=== PATIENT | female | born 1970 | race Caucasian/White ===

== ENCOUNTER 2018-02-24 05:47 | Emergency (ER) | payer SELFPAY ==
[2018-02-24 06:08] VITALS: BMI 20.1
--- NOTE | 2018-02-24 06:34 | PDOC ---
History of Present Illness - General Chief Complaint: Pain, Acute Stated Complaint: ABD PAIN Time Seen by Provider: 02/24/18 06:19 - History of Present Illness Initial Comments: 02/24/18 06:24 CHIEF COMPLAINT: lower abdominal pain HISTORY OF PRESENT ILLNESS: 47 yo F A2 with hx of two miscarriages ( including one D&C 26 years ago and another medically assisted with D&C 6 years ago), presents to ED with lower abdominal pain and vaginal bleeding since 2 am today. Patient reports she woke up in pain and with the sensation that she needed to make a bowel movement, but when she used the bathroom she could only pass a little urine and had a lot of pain with hematuria. Denies burning sensation with urination and states "it is pain, not burning." Patient reports she had similar sensations when she had her previous miscarriages. Patient reports LMP was last week. Last bowel movement was 4 hours ago. Patient reports having negative STD test approximately 2 months ago. Patient denies fever, vomiting, or diarrhea, but reports chills all night. PAST MEDICAL HISTORY: "breast cysts", 2 c-sections, 2 D&Cs FAMILY HISTORY: Denies SOCIAL HISTORY: Denies tobacco, alcohol, illicit drug use. SURGICAL HISTORY: Denies ALLERGIES: No known drug allergies REVIEW OF SYSTEMS General/Constitutional: Chills tonight. Denies fever. Denies weakness, weight change. HEENT: Denies change in vision. Denies ear pain or discharge. Denies sore throat. Cardiovascular: Denies chest pain or shortness of breath. Respiratory: Denies cough, wheezing, or hemoptysis. Gastrointestinal: Denies nausea, vomiting, diarrhea or constipation. Denies rectal bleeding. Genitourinary: Lower abdominal pain while urinating/defecating, vaginal bleeding Musculoskeletal: Denies joint or muscle swelling or pain. Denies neck or back pain. Skin and breasts: Denies rash or easy bruising. PHYSICAL EXAM General Appearance: Well-appearing, appropriately dressed. No apparent distress. HEENT: EOMI, PERRLA, normal ENT inspection, normal voice, TMs normal, pharynx normal. No conjunctival pallor. No photophobia, scleral icterus. Respiratory/Chest: Lungs CTAB. Cardiovascular: RRR. S1, S2. Pelvic: External genitalia normal without lesions. Vaginal vault is with foul smelling yellow discharge, no bleeding appreciated. Cervix is long and closed. No cervical motion tenderness. Uterus is nontender and normal in size. Mild R adnexal tenderness. Musculoskeletal/Extremities: Normal inspection. FROM of all extremities, normal capillary refill. Pelvis Stable. No CVA tenderness. No tenderness to extremities, pedal edema, swelling, erythema or deformity. Integumentary: Appropriate color, dry, warm. No cyanosis, erythema, jaundice or rash Neurologic: locator specialist II-XII intact. Fully oriented, alert. Appropriate mood/affect. Motor strength 5/5. No appreciable EOM palsy, facial droop or sensory deficit. Past History - Past Medical History Allergies/Adverse Reactions: Allergies Allergy/AdvReac Type Severity Reaction Status Date / Time No Known Allergies Allergy Verified 02/24/18 06:06 Home Medications: Ambulatory Orders Nitrofurantoin Monohyd/M-Cryst [Macrobid -] 100 mg PO BID #14 capsule 02/24/18 Nitrofurantoin Monohyd/M-Cryst [Macrobid -] 100 mg PO BID #14 capsule 02/24/18 - Suicide/Smoking/Psychosocial Hx Smoking Status: No Smoking History: Never smoked Have you smoked in the past 12 months: No Number of Cigarettes Smoked Daily: 0 Information on smoking cessation initiated: No Hx Alcohol Use: No Drug/Substance Use Hx: No *Physical Exam - Vital Signs Last Vital Signs Temp Pulse Resp BP Pulse Ox 97.8 F 95 H 20 112/72 100 02/24/18 06:06 02/24/18 06:06 02/24/18 06:06 02/24/18 06:06 02/24/18 06:06 ED Treatment Course - LABORATORY CBC & Chemistry Diagram: 02/24/18 06:05 02/24/18 06:05 - RADIOLOGY Radiology Studies Ordered: Category Date Time Status TRANSVAGINAL US PREG [US] Stat Ultrasound 02/24/18 06:19 Ordered Medical Decision Making - Medical Decision Making 02/24/18 06:42 47 yo F A2 with hx of two spontaneous abortions (one D&C 26 years ago and another medically assisted with D&C6 years ago), presents to ED with lower abdominal pain and vaginal bleeding since 2 am today. DDx includes: PID, ruptured ovarian cyst, spontaneous , UTI -labs, urine, ultrasound Given discharge and adnexal tenderness on pelvic exam, will treat prophylactically for PID. -azithromycin, rocephin 02/24/18 06:50 Patient reports she just went to the restroom and passed two large blood clots. Case discussed in detail with oncoming emergency provider including history, physical exam and ancillary studies. In brief, this patient is being seen in the ED for a chief complaint of: I have completed the initial assessment interview note and have ordered the following labs: CBC, CMP, T&S, beta, urines, ct/gc, ultrasound I have reviewed the following results: nothing Pending results: everything Please call the PCP: patient does not have one Plan for disposition as follows: pending Oncoming [facility] has assumed care for the patient and will complete the evaluation and treatment. *DC/Admit/Observation/Transfer Diagnosis at time of Disposition: Uterine fibroid Qualifiers: Uterine leiomyoma location: unspecified location Qualified Code(s): D25.9 - Leiomyoma of uterus, unspecified UTI (urinary tract infection) Qualifiers: Urinary tract infection type: acute cystitis Hematuria presence: with hematuria Qualified Code(s): N30.01 - Acute cystitis with hematuria - Discharge Dispostion Disposition: HOME Condition at time of disposition: Good - Prescriptions Prescriptions: Nitrofurantoin Monohyd/M-Cryst [Macrobid -] 100 mg PO BID #14 capsule Nitrofurantoin Monohyd/M-Cryst [Macrobid -] 100 mg PO BID #14 capsule - Referrals Referrals: Cara Rinaldi MD [Staff Physician] - 14 days - Patient Instructions Printed Discharge Instructions: DI for Uterine Fibroids, DI for Urinary Tract Infection (UTI) Additional Instructions: Discharge instructions: -You have a urinary tract infection; a prescription for antibiotics has been sent to your pharmacy; please rock picker today and begin taking. -Please drink at least 64oz of water daily -You also have a uterine fibroid, which may be causing your vaginal bleeding. -You can take over the counter Tylenol or Motrin for your pain if needed -Follow up with Dr. Rinaldi within 2 weeks for further evaluation of your fibroid -Return to the ER with any worsening or concerning symptoms. Instrucciones de descarga: -Tiene vibha infeccin del tracto urinario. vibha receta para antibiticos velazquez sido enviada a ott farmacia; por favor retrese hoy y comience a timmy. -Por favor susie al menos 64 onzas de agua al da -Tambin tiene un fibroma uterino, que puede estar causando ott sangrado vaginal. -Puede timmy el control Tylenol o Motrin para ott dolor si es necesario -Siga con el Dr. Rinaldi dentro de 2 semanas para vibha evaluacin adicional de ott fibroma -Volver a la marquita de emergencias con cualquier empeoramiento o sntomas. Print Language: YAKUT - Post Discharge Activity
[2018-02-24] MEDS ORDERED: AZITHROMYCIN 500 MG TABLET PO ONE (06:38)
--- NOTE | 2018-02-24 06:38 | PDOC ---
*Physical Exam - Vital Signs Last Vital Signs Temp Pulse Resp BP Pulse Ox 97.8 F 95 H 20 112/72 100 02/24/18 06:06 02/24/18 06:06 02/24/18 06:06 02/24/18 06:06 02/24/18 06:06 ED Treatment Course - LABORATORY CBC & Chemistry Diagram: 02/24/18 06:05 02/24/18 06:05 Medical Decision Making - Medical Decision Making 02/24/18 06:37 agree with care from AHSAN Segovia *DC/Admit/Observation/Transfer Diagnosis at time of Disposition: Uterine fibroid, UTI (urinary tract infection) - Discharge Dispostion Disposition: HOME Condition at time of disposition: Good - Prescriptions Prescriptions: Nitrofurantoin Monohyd/M-Cryst [Macrobid -] 100 mg PO BID #14 capsule Nitrofurantoin Monohyd/M-Cryst [Macrobid -] 100 mg PO BID #14 capsule - Referrals Referrals: Cara Rinaldi MD [Staff Physician] - 14 days - Patient Instructions Printed Discharge Instructions: DI for Uterine Fibroids, DI for Urinary Tract Infection (UTI) Additional Instructions: Discharge instructions: -You have a urinary tract infection; a prescription for antibiotics has been sent to your pharmacy; please garbage pick up man today and begin taking. -Please drink at least 64oz of water daily -You also have a uterine fibroid, which may be causing your vaginal bleeding. -You can take over the counter Tylenol or Motrin for your pain if needed -Follow up with Dr. Rinaldi within 2 weeks for further evaluation of your fibroid -Return to the ER with any worsening or concerning symptoms. Instrucciones de descarga: -Tiene vibha infeccin del tracto urinario. vibha receta para antibiticos velazquez sido enviada a ott farmacia; por favor retrese hoy y comience a timmy. -Por favor susie al menos 64 onzas de agua al da -Tambin tiene un fibroma uterino, que puede estar causando ott sangrado vaginal. -Puede timmy el control Tylenol o Motrin para ott dolor si es necesario -Siga con el Dr. Rinaldi dentro de 2 semanas para vibha evaluacin adicional de ott fibroma -Volver a la marquita de emergencias con cualquier empeoramiento o sntomas. Print Language: ENGLISH - Post Discharge Activity
[2018-02-24] MEDS: ONDANSETRON *ODT* 4 MG TABLET SL ONE ×2 (06:42→07:43)
[2018-02-24 06:43] LABS: BASO % 0.3 % (0-2.0); EOS % 0.8 % (0-4.5); HEMATOCRIT 37.5 % (32.4-45.2); HEMOGLOBIN 13.1 GM/dL (10.7-15.3); LYMPH % 13.6 % (8-40); MCH 30.9 pg (25.7-33.7); MCHC 34.9 g/dl (32.0-36.0); MEAN CELL VOLUME 88.5 fl (80-96); MONO % 5.4 % (3.8-10.2); NEUT % 79.9 % (42.8-82.8); PLATELET COUNT 222 K/MM3 (134-434); RBC 4.24 M/mm3 (3.60-5.2); RDW 12.8 % (11.6-15.6); WHITE BLOOD COUNT 14.3 K/mm3 (4.0-10.0)
[2018-02-24] MEDS ORDERED: ONDANSETRON *ODT* 4 MG TABLET ONE ×2 (06:43→07:41)
[2018-02-24 06:45] LABS: URINE APPEARANCE CLOUDY; URINE BILIRUBIN NEGATIVE (<2.0 mg/dL); URINE COLOR YELLOW; URINE GLUCOSE (UA) NEGATIVE (NEGATIVE); URINE KETONE NEGATIVE (NEGATIVE); URINE NITRITE NEGATIVE (NEGATIVE); URINE UROBILINOGEN NEGATIVE mg/dL (0.2-1.0)
[2018-02-24 07:05] LABS: INR 0.98 (0.82-1.09); PROTHROMBIN TIME (PATIENT) 11.1 SEC (9.7-13.0)
[2018-02-24 07:26] LABS: ALBUMIN 4.1 g/dl (3.4-5.0); ALK PHOS 81 U/L (45-117); ANION GAP 5 (8-16); BILIRUBIN,TOTAL 1.1 mg/dL (0.2-1.0); BLOOD UREA NITROGEN 19 mg/dL (7-18); CHLORIDE 100 mmol/L (98-107); CO2 31 mmol/L (21-32); CREATININE 0.8 mg/dL (0.55-1.02); GLUCOSE,RANDOM 106 mg/dL (74-106); POTASSIUM 3.7 mmol/L (3.5-5.1); SGOT/AST 26 U/L (15-37); SGPT/ALT 27 U/L (12-78); SODIUM 136 mmol/L (136-145); TOT PROT 7.5 g/dl (6.4-8.2)
[2018-02-24] MEDS ORDERED: AZITHROMYCIN 250 MG TABLET ONE (07:38)
[2018-02-24] MEDS ORDERED: cefTRIAXone SODIUM 1 GM VIAL ONE (07:39)
[2018-02-24] MEDS ORDERED: SODIUM CHLORIDE 1,000 ML IV STA (08:09)
[2018-02-24 08:16] LABS: URINE LEUK ESTERASE 2+ (NEGATIVE); URINE PROTEIN 3+ (NEGATIVE)
[2018-02-24 08:18] LABS: EPI CELLS RARE /HPF (FEW)
--- NOTE | 2018-02-24 09:09 | PDOC ---
ED Treatment Course - LABORATORY CBC & Chemistry Diagram: 02/24/18 06:05 02/24/18 06:05 - ADDITIONAL ORDERS Additional order review: Laboratory Results 02/24/18 02/24/18 02/24/18 06:05 06:05 06:05 PT with INR 11.10 INR 0.98 Sodium Potassium Chloride Carbon Dioxide Anion Gap BUN Creatinine Creat Clearance w eGFR Random Glucose Calcium Total Bilirubin AST ALT Alkaline Phosphatase Total Protein Albumin Beta HCG, Quant < 1.0 Urine Color Yellow Urine Appearance Cloudy Urine pH 9.0 H Ur Specific [place] 1.017 Urine Protein 3+ H Urine Glucose (UA) Negative Urine Ketones Negative Urine Blood 3+ H Urine Nitrite Negative Urine Bilirubin Negative Urine Urobilinogen Negative Ur Leukocyte Esterase 2+ H Urine WBC (Auto) 258 Urine RBC (Auto) 2454 Ur Epithelial Cells Rare 02/24/18 06:05 PT with INR INR Sodium 136 Potassium 3.7 Chloride 100 Carbon Dioxide 31 Anion Gap 5 L BUN 19 H Creatinine 0.8 Creat Clearance w eGFR > 60 Random Glucose 106 Calcium 9.0 Total Bilirubin 1.1 H AST 26 ALT 27 Alkaline Phosphatase 81 Total Protein 7.5 Albumin 4.1 Beta HCG, Quant Urine Color Urine Appearance Urine pH Ur Specific [place] Urine Protein Urine Glucose (UA) Urine Ketones Urine Blood Urine Nitrite Urine Bilirubin Urine Urobilinogen Ur Leukocyte Esterase Urine WBC (Auto) Urine RBC (Auto) Ur Epithelial Cells 02/24/18 06:05 RBC 4.24 MCV 88.5 MCHC 34.9 RDW 12.8 MPV 8.0 Neutrophils % 79.9 Lymphocytes % 13.6 Monocytes % 5.4 Eosinophils % 0.8 Basophils % 0.3 - RADIOLOGY Radiology Studies Ordered: Category Date Time Status TRANSVAGINAL ULTRASOUND US [US] Stat Ultrasound 02/24/18 08:27 Ordered - Medications Given in the ED: ED Medications Discontinued Medications Generic Name Dose Route Start Last Admin Trade Name Freq PRN Reason Stop Dose Admin Azithromycin 1,000 mg 02/24/18 06:38 02/24/18 07:48 Azithromycin PO 02/24/18 06:39 1,000 mg ONCE ONE Administration Ceftriaxone Sodium 250 mg 02/24/18 06:38 02/24/18 07:48 Rocephin - IM 02/24/18 06:39 250 mg ONCE ONE Administration Ondansetron HCl 4 mg 02/24/18 06:24 02/24/18 07:43 Zosujatha Odt - SL 02/24/18 06:25 4 mg ONCE ONE Administration Progress Note - Progress Note Progress Note: I have received report from AHSAN Segovia regarding this patient. Pt's initial chief complaint: lower abdominal pain and vaginal bleeding since 2am. Pt's work up completed prior to sign out: labs Pt treatment given from prior staff: Azithro and Ceftriaxone Pt plan to be completed: Awaiting UA and ultrasound Dispo: pending Medical Decision Making - Medical Decision Making A/P: 47 y/o afebrile female c/o lower abdominal pain and vaginal bleeding since 2am. Patient was initially evaluated by AHSAN Segovia. Awaiting UA and transvaginal ultrasound UA + for UTI. Transvaginal Ultrasound IMPRESSION: uterine fibroid Gave the patient all of her results. WIll suggest MAKE UP OPERATOR follow up and provided a referral. Will send rx for macrobid to treat UTi. Suggested Motrin or Tylenol for pain. Patient instructed to return to the ER with any worsening or concerning symptoms. The patient verbalizes understanding of all instructions, has no further questions and is awaiting discharge. *DC/Admit/Observation/Transfer Diagnosis at time of Disposition: Uterine fibroid Qualifiers: Uterine leiomyoma location: unspecified location Qualified Code(s): D25.9 - Leiomyoma of uterus, unspecified UTI (urinary tract infection) Qualifiers: Urinary tract infection type: acute cystitis Hematuria presence: with hematuria Qualified Code(s): N30.01 - Acute cystitis with hematuria - Discharge Dispostion Disposition: HOME Condition at time of disposition: Good - Prescriptions Prescriptions: Nitrofurantoin Monohyd/M-Cryst [Macrobid -] 100 mg PO BID #14 capsule - Referrals Referrals: Cara Rinaldi MD [Staff Physician] - 14 days - Patient Instructions Printed Discharge Instructions: DI for Uterine Fibroids, DI for Urinary Tract Infection (UTI) Additional Instructions: Discharge instructions: -You have a urinary tract infection; a prescription for antibiotics has been sent to your pharmacy; please cone picker today and begin taking. -Please drink at least 64oz of water daily -You also have a uterine fibroid, which may be causing your vaginal bleeding. -You can take over the counter Tylenol or Motrin for your pain if needed -Follow up with Dr. Khushalani within 2 weeks for further evaluation of your fibroid -Return to the ER with any worsening or concerning symptoms. Instrucciones de descarga: -Tiene vibha infeccin del tracto urinario. vibha receta para antibiticos velazquez sido enviada a ott farmacia; por favor retrese hoy y comience a timmy. -Por favor susie al menos 64 onzas de agua al da -Tambin tiene un fibroma uterino, que puede estar causando ott sangrado vaginal. -Puede timmy el control Tylenol o Motrin para ott dolor si es necesario -Siga con el Dr. Rinaldi dentro de 2 semanas para vibha evaluacin adicional de ott fibroma -Volver a la marquita de emergencias con cualquier empeoramiento o sntomas. Print Language: ARGENTINE - Post Discharge Activity
[2018-02-24 09:15] VITALS: BP 124/66; PULSE 73; TEMP 98.7
== END 2018-02-24 10:26 | disposition home or self-care (01) ==
LOC: JER 05:47
PROC: 3E0337Z Introduction of Electrolytic and Water Balance Substance into Peripheral Vein, Percutaneous Approach (ICD-10-PCS; principal; 2018-02-24)
DX: N30.01 Acute cystitis with hematuria (principal); D25.9 Leiomyoma of uterus, unspecified
CPT/HCPCS: 36415; 76830-TC; 80053; 81003; 81015; 84702; 85025; 85610; 87086; 87186; 87491; 87591; 99284-25; J7030; Q0162

== ENCOUNTER 2018-09-06 11:34 | Emergency (ER) | payer SELFPAY ==
[2018-09-06 11:52] VITALS: BP 131/58; PULSE 78; TEMP 98.6; BMI 20.3
[2018-09-06] MEDS ORDERED: CYCLOBENZAPRINE HCL 10 MG TABLET (FP) PO ONE (12:39)
[2018-09-06] MEDS ORDERED: CYCLOBENZAPRINE HCL 10 MG TABLET (FP) ONE (12:45)
--- NOTE | 2018-09-06 12:50 | PDOC ---
History of Present Illness - General Chief Complaint: Pain, Acute Stated Complaint: NECK PAIN Time Seen by Provider: 09/06/18 12:20 History Source: Patient Exam Limitations: No Limitations Past History - Past Medical History Allergies/Adverse Reactions: Allergies Allergy/AdvReac Type Severity Reaction Status Date / Time No Known Allergies Allergy Verified 09/06/18 11:49 Home Medications: Ambulatory Orders Cyclobenzaprine HCl [Flexeril -] 10 mg PO TID PRN #21 tablet 09/06/18 COPD: No - Reproductive History Therapeutic (s) & number: No - Suicide/Smoking/Psychosocial Hx Smoking Status: No Smoking History: Never smoked Have you smoked in the past 12 months: No Number of Cigarettes Smoked Daily: 0 Hx Alcohol Use: No Drug/Substance Use Hx: No *Physical Exam - Vital Signs Last Vital Signs Temp Pulse Resp BP Pulse Ox 98.6 F 78 17 131/58 L 100 09/06/18 11:49 09/06/18 11:49 09/06/18 11:49 09/06/18 11:49 09/06/18 11:49 - Physical Exam General Appearance: No: Apparent Distress HEENT: positive: Pharynx Normal Neck: positive: Tender lateral, Other (+muscle tightness along R trapezius, pain with turning head to right). negative: Tender midline Respiratory/Chest: positive: Lungs Clear, Normal Breath Sounds. negative: Respiratory Distress Cardiovascular: positive: Regular Rhythm, Regular Rate, S1, S2. negative: Murmur Integumentary: positive: Normal Color Neurologic: positive: wheel presser II-XII NML intact, Fully Oriented, Alert, Normal Mood/ Affect, Motor Strength 5/5 Moderate Sedation - Procedure Monitoring Vital Signs: Procedure Monitoring Vital Signs Temperature 98.6 F 09/06/18 11:49 Pulse Rate 78 09/06/18 11:49 Respiratory Rate 17 09/06/18 11:49 Blood Pressure 131/58 L 09/06/18 11:49 O2 Sat by Pulse Oximetry (%) 100 09/06/18 11:49 Medical Decision Making - Medical Decision Making 48 y/o F with no sig pmh presents R sided neck pain which she woke up with this morning. Denies trauma. Regularly lifts weights at the gym; last worked out yesterday afternoon, but states was fine the rest of the day until this morning. Denies sob, cp, numbness/tingling/weakness of extremities. Patient took 400 mg of Motrin prior to coming in. Likely muscle strain - given Flexeril 09/06/18 12:46 *DC/Admit/Observation/Transfer Diagnosis at time of Disposition: Neck muscle strain Qualifiers: Encounter type: initial encounter Qualified Code(s): S16.1XXA - Strain of muscle, fascia and tendon at neck level, initial encounter - Discharge Dispostion Disposition: HOME Condition at time of disposition: Stable Decision to Admit order: No - Prescriptions Prescriptions: Cyclobenzaprine HCl [Flexeril -] 10 mg PO TID PRN #21 tablet PRN Reason: Muscle Spasms - Referrals - Patient Instructions Printed Discharge Instructions: DI for Neck Pain, DI for Cervical Muscle Strain Additional Instructions: Thank you for choosing [facility]. It was a pleasure taking care of you. You may take Motrin 600 mg every 4 hours by mouth as needed for mild to moderate pain. Take Motrin with food. Take Flexeril as needed to help with muscle spasms. This medication can also make you drowsy so please be cautious with driving or performing heavy physical work. Warm compresses may also help Follow up with your doctor in 2-3 days. Return to the Emergency Department if your symptoms worsen or persist or have other concerning symptoms. Grady por elegir el [facility]. Fue un placer cuidar de ti. Puede timmy Motrin 600 mg cada 4 horas por va oral segn sea necesario para el dolor leve a moderado. [place] Motrin con la comida. [place] Flexeril segn sea necesario para ayudar con los espasmos musculares. [place] medicamento tambin puede causarle somnolencia, as que tenga cuidado al conducir o realizar trabajos fsicos pesados. Las compresas calientes tambin pueden ayudar Rosy un seguimiento con ott mdico en 2-3 villasenor. Regrese al Departamento de Emergencias si cyndy sntomas empeoran o persisten o si tiene otros sntomas relacionados. Print Language: CROATIAN - Post Discharge Activity
== END 2018-09-06 12:54 | disposition home or self-care (01) ==
LOC: JERFT 11:34
DX: S16.1XXA Strain of muscle, fascia and tendon at neck level, initial encounter (principal); X50.9XXA Other and unspecified overexertion or strenuous movements or postures, initial encounter; Y93.89 Activity, other specified; Y92.89 Other specified places as the place of occurrence of the external cause; Y99.8 Other external cause status
CPT/HCPCS: 99281-25

== ENCOUNTER 2019-08-14 06:55 | Emergency (ER) | payer SELFPAY ==
[2019-08-14 07:27] VITALS: BP 119/67; PULSE 67; TEMP 97.8; BMI 21.1
[2019-08-14] MEDS ORDERED: IBUPROFEN 600 MG TABLET (FP) PO ONE ×2 (07:41→07:50)
[2019-08-14 08:05] LABS: EPI CELLS 3.5 /HPF (0-5/HPF); HYALINE CASTS 3 /lpf (0-8); URINE APPEARANCE CLEAR; URINE BACTERIA 1905.6 /hpf (NEGATIVE); URINE BILIRUBIN NEGATIVE (NEGATIVE); URINE COLOR YELLOW; URINE GLUCOSE (UA) NEGATIVE (NEGATIVE); URINE KETONE NEGATIVE (NEGATIVE); URINE LEUK ESTERASE 1+ (NEGATIVE); URINE NITRITE NEGATIVE (NEGATIVE); URINE PROTEIN NEGATIVE (NEGATIVE); URINE RBC 2 /hpf (0-4); URINE UROBILINOGEN 0.2 mg/dL (0.2-1.0); URINE WBC 14 /hpf (0-5)
--- NOTE | 2019-08-14 08:36 | PDOC ---
History of Present Illness - General Chief Complaint: Pain, Acute Stated Complaint: ABD PAIN,SHOULDER PAIN Time Seen by Provider: 08/14/19 07:30 History Source: Patient Exam Limitations: No Limitations - History of Present Illness Initial Comments: 08/14/19 08:29 49-year-old female presents to ED with complaints of 2 weeks of right shoulder pain worsened with movement. Patient denies any injury to the area weakness of the extremity, or sensory changes of the extremity. Patient also complaining of suprapubic pressure with urinary frequency for the past 3 days. Patient denies vaginal discharge, back pain, fever, chills or nausea Is this a multiple visit Asthma Patient?: No Timing/Duration: other (2 weeks shoulder pain) Severity: mild, moderate Associated Symptoms: reports: other Past History - Travel Traveled outside of the country in the last 30 days: No Close contact w/someone who was outside of country & ill: No - Past Medical History Allergies/Adverse Reactions: Allergies Allergy/AdvReac Type Severity Reaction Status Date / Time No Known Allergies Allergy Verified 09/06/18 11:49 Home Medications: Ambulatory Orders NK [No Known Home Medication] 08/14/19 COPD: No - Reproductive History Therapeutic (s) & number: No - Psycho Social/Smoking Cessation Hx Smoking Status: No Smoking History: Never smoked Have you smoked in the past 12 months: No Number of Cigarettes Smoked Daily: 0 Hx Alcohol Use: No Drug/Substance Use Hx: No Patient Lives Alone: No Lives with/in: spouse/SO Review of Systems - Review of Systems Able to Perform ROS?: Yes Constitutional: No: Symptoms Reported HEENTM: No: Symptoms Reported Respiratory: No: Symptoms reported Cardiac (ROS): No: Symptoms Reported ABD/GI: Yes: Other (Suprapubic pressure). No: Symptoms Reported : Yes: Dysuria, Frequency Musculoskeletal: Yes: Back Pain, Joint Pain (Right shoulder). No: Muscle Pain, Muscle Weakness Integumentary: No: Symptoms Reported Neurological: No: Symptoms reported Endocrine: No: Symptoms Reported Hematologic/Lymphatic: No: Symptoms Reported *Physical Exam - Vital Signs Last Vital Signs Temp Pulse Resp BP Pulse Ox 97.8 F 67 16 119/67 98 08/14/19 07:22 08/14/19 07:22 08/14/19 07:22 08/14/19 07:22 08/14/19 07:22 - Physical Exam General Appearance: Yes: Nourished, Appropriately Dressed. No: Apparent Distress HEENT: negative: Pale Conjunctivae Neck: positive: Supple Respiratory/Chest: positive: Lungs Clear, Normal Breath Sounds. negative: Respiratory Distress, Accessory Muscle Use Cardiovascular: positive: Regular Rhythm, Regular Rate. negative: Murmur Gastrointestinal/Abdominal: positive: Soft. negative: Tenderness Musculoskeletal: negative: Normal Inspection Extremity: positive: Normal Inspection, Normal Range of Motion, Tender (right shoulder Generalized) Integumentary: positive: Normal Color, Warm, Moist Neurologic: positive: Motor Strength 5/5 (Ambulatory) ED Treatment Course - ADDITIONAL ORDERS Additional order review: Laboratory Results 08/14/19 07:47 Urine Color Yellow Urine Appearance Clear Urine pH 6.0 D Ur Specific [place] 1.007 L Urine Protein Negative Urine Glucose (UA) Negative Urine Ketones Negative Urine Blood 1+ H Urine Nitrite Negative Urine Bilirubin Negative Urine Urobilinogen 0.2 Ur Leukocyte Esterase 1+ H Urine WBC (Auto) 14 Urine RBC (Auto) 2 Urine Casts (Auto) 3 U Epithel Cells (Auto) 3.5 Urine Bacteria (Auto) 1905.6 - RADIOLOGY Radiology Studies Ordered: Category Date Time Status SHOULDER-RIGHT [RAD] Stat Radiology 08/14/19 07:41 Completed - Medications Given in the ED: ED Medications Discontinued Medications Generic Name Dose Route Start Last Admin Trade Name Freq PRN Reason Stop Dose Admin Ibuprofen 600 mg 08/14/19 07:41 08/14/19 08:01 Motrin - PO 08/14/19 07:42 600 mg ONCE ONE Administration Medical Decision Making - Medical Decision Making 08/14/19 08:00 Chief complaint: Right shoulder pain x2 weeks worsened with movement. No previous injury or follow-up patient also urinary frequency suprapubic pressure and dysuria Exam: Full range of motion of right shoulder but tender throughout no abdominal tenderness vital signs stable. Plan: Motrin 600 right shoulder x-ray and urinalysis urine culture. Patient menopausal no urine ordered 08/14/19 08:38 Laboratory Tests 08/14/19 07:47 Ur Specific [place] 1.007 L Urine Blood 1+ H Ur Leukocyte Esterase 1+ H Urine WBC (Auto) 14 Urine RBC (Auto) 2 Urine Bacteria (Auto) 1905.6 Shoulder x-ray shows no acute pathology. Patient states some relief with Motrin. Patient will be given Macrobid. Urine culture sent. Patient recommended to apply heat to the affected area take Motrin 600 and avoid movements that trigger discomfort. Patient does not have insurance and states will not follow-up with orthopedist due to lack of insurance Discharge - Discharge Information Problems reviewed: Yes Clinical Impression/Diagnosis: Right shoulder pain, UTI (urinary tract infection) Condition: Improved Disposition: HOME - Additional Discharge Information Prescriptions: Nitrofurantoin Monohyd/M-Cryst [Macrobid -] 100 mg PO BID #14 capsule - Follow up/Referral - Patient Discharge Instructions Patient Printed Discharge Instructions: DI for Urinary Tract Infection (UTI), DI for Shoulder Pain, Shoulder Tendinopathy Additional Instructions: Take Motrin 600 mg every 8 hours for pain. Avoid movements that trigger discomfort. Take antibiotics as prescribed. Print Language: YORUBA - Post Discharge Activity
== END 2019-08-14 08:50 | disposition home or self-care (01) ==
LOC: JER 06:55
DX: N39.0 Urinary tract infection, site not specified (principal); B97.89 Other viral agents as the cause of diseases classified elsewhere; M25.511 Pain in right shoulder
CPT/HCPCS: 73030-TC-RT-FY; 81003; 87086; 87186; 99282-25

== ENCOUNTER 2023-01-16 11:45 | Emergency (ER) | payer OTHER ==
[2023-01-16 11:51] VITALS: BP 113/63; PULSE 69; RESP 18; TEMP 98.3; BMI 21.9
[2023-01-16] MEDS ORDERED: DIPHTH,PERTUSS(ACELL),TET 0.5 ML DISP.SYRIN IM ONE ×2 (12:26→12:48)
== END 2023-01-16 13:09 | disposition home or self-care (01) ==
LOC: JERFT 11:45
PROC: 3E0234Z Introduction of Serum, Toxoid and Vaccine into Muscle, Percutaneous Approach (ICD-10-PCS; principal; 2023-01-16)
DX: S20.369A Insect bite (nonvenomous) of unspecified front wall of thorax, initial encounter (principal)
CPT/HCPCS: 90715; 99283-25

== ENCOUNTER 2023-07-11 13:47 | Emergency (ER) | payer SELFPAY ==
[2023-07-11 13:55] VITALS: BP 121/72; PULSE 81; RESP 18; TEMP 98.6; BMI 20.3
[2023-07-11 15:46] LABS: HEMATOCRIT 40.2 % (32.4-45.2); HEMOGLOBIN 13.7 GM/dL (10.7-15.3); MCH 29.7 pg (25.7-33.7); MCHC 34.2 g/dl (32.0-36.0); MEAN PLT VOLUME 7.6 fl (7.5-11.1); PLATELET COUNT 229 10^3/uL (134-434); RBC 4.62 M/mm3 (3.60-5.2); RDW 13.5 % (11.6-15.6); WHITE BLOOD COUNT 7.2 K/mm3 (4.0-10.0)
[2023-07-11 16:03] LABS: CALCIUM 9.1 mg/dL (8.5-10.1)
[2023-07-11 16:04] LABS: ALBUMIN 3.9 g/dl (3.4-5.0); BLOOD UREA NITROGEN 14.9 mg/dL (7-18)
[2023-07-11 16:07] LABS: CREATININE 0.8 mg/dL (0.55-1.3)
[2023-07-11 16:09] LABS: BILIRUBIN,TOTAL 0.8 mg/dL (0.2-1); TOT PROT 7.6 g/dl (6.4-8.2)
== END 2023-07-11 17:11 | disposition home or self-care (01) ==
LOC: JERFT 13:47
DX: H92.01 Otalgia, right ear (principal); H66.91 Otitis media, unspecified, right ear
CPT/HCPCS: 36415; 80053; 84703; 85027; 99283-25

== ENCOUNTER 2023-12-30 10:57 | Emergency (ER) | payer SELFPAY ==
[2023-12-30 11:06] VITALS: BP 130/71; PULSE 93; RESP 18; TEMP 98.1; BMI 20.3
[2023-12-30] MEDS: ACETAMINOPHEN 1000 MG/100 ML BAG IVPB ONE (12:06)
[2023-12-30 12:17] LABS: HCG,QUALITATIVE URINE Negative
[2023-12-30 12:18] LABS: EPI CELLS 3 /uL (0-25.1); HYALINE CASTS 0 /uL (0-3.1); PH,URINE 7.5 (5.0-8.0); URINE APPEARANCE CLEAR; URINE BACTERIA 19 /uL (0-1359); URINE BILIRUBIN NEGATIVE (NEGATIVE); URINE COLOR YELLOW; URINE GLUCOSE (UA) NEGATIVE (NEGATIVE); URINE KETONE NEGATIVE (NEGATIVE); URINE LEUK ESTERASE NEGATIVE (NEGATIVE); URINE NITRITE NEGATIVE (NEGATIVE); URINE PROTEIN NEGATIVE (NEGATIVE); URINE RBC 23 /uL (0-23.9); URINE UROBILINOGEN 0.2 mg/dL (0.2-1.0); URINE WBC 1 /uL (0-25.8)
[2023-12-30 12:19] LABS: BASO % 0.4 % (0-2.0); EOS % 4.6 % (0-4.5); HEMATOCRIT 38.8 % (32.4-45.2); HEMOGLOBIN 13.3 GM/dL (10.7-15.3); LYMPH % 39.2 % (8-40); MCH 29.8 pg (25.7-33.7); MCHC 34.3 g/dl (32.0-36.0); MEAN PLT VOLUME 7.9 fl (7.5-11.1); MONO % 6.2 % (3.8-10.2); NEUT % 49.6 % (42.8-82.8); PLATELET COUNT 207 10^3/uL (134-434); RBC 4.47 M/mm3 (3.60-5.2); RDW 13.4 % (11.6-15.6); WHITE BLOOD COUNT 6.7 K/mm3 (4.0-10.0)
[2023-12-30 12:34] LABS: POTASSIUM 3.9 mmol/L (3.5-5.1)
[2023-12-30 12:35] LABS: CALCIUM 9.3 mg/dL (8.5-10.1)
[2023-12-30 12:36] LABS: ALBUMIN 3.9 g/dl (3.4-5.0); BLOOD UREA NITROGEN 17.7 mg/dL (7-18)
[2023-12-30 12:39] LABS: CREATININE 0.9 mg/dL (0.55-1.3)
[2023-12-30 12:41] LABS: BILIRUBIN,TOTAL 0.6 mg/dL (0.2-1); TOT PROT 7.5 g/dl (6.4-8.2)
== END 2023-12-30 17:46 | disposition home or self-care (01) ==
LOC: JER 10:57
PROC: 3E033NZ Introduction of Analgesics, Hypnotics, Sedatives into Peripheral Vein, Percutaneous Approach (ICD-10-PCS; principal; 2023-12-30)
DX: R10.13 Epigastric pain (principal); R10.31 Right lower quadrant pain; R10.32 Left lower quadrant pain
CPT/HCPCS: 36415; 74177-TC; 80053; 81003; 83690; 84703; 85025; 87086; 99285-25; J0131; Q9967

== ENCOUNTER 2024-02-08 19:39 | Emergency (ER) | payer SELFPAY ==
[2024-02-08 19:53] VITALS: BP 138/86; PULSE 89; RESP 16; TEMP 99; BMI 20.3
== END 2024-02-08 23:04 | disposition home or self-care (01) ==
LOC: JERFT 19:39
DX: R07.0 Pain in throat (principal)
CPT/HCPCS: 71046-TC-FY; 99283-25

== ENCOUNTER 2024-03-13 11:33 | Emergency (ER) | payer OTHER ==
[2024-03-13 11:51] VITALS: BP 126/78; PULSE 89; RESP 18; TEMP 98; BMI 19.5
[2024-03-13] MEDS ORDERED: IBUPROFEN 600 MG TABLET (FP) PO ONE (13:43)
[2024-03-13] MEDS ORDERED: PSEUDOEPHEDRINE HCL 60 MG TABLET ONE (13:46)
[2024-03-13] MEDS: IBUPROFEN 600 MG TABLET (FP) PO ONE (13:49)
[2024-03-13] MEDS: PSEUDOEPHEDRINE HCL 60 MG TABLET PO ONE (13:50)
== END 2024-03-13 14:32 | disposition home or self-care (01) ==
LOC: JERFT 11:33
DX: J32.9 Chronic sinusitis, unspecified (principal); R09.82 Postnasal drip; R51.9 Headache, unspecified; R09.81 Nasal congestion; M54.2 Cervicalgia; M79.10 Myalgia, unspecified site; Z20.822 Contact with and (suspected) exposure to COVID-19
CPT/HCPCS: 0241U-QW; 99283-25

== ENCOUNTER 2024-05-22 11:26 | Emergency (ER) | payer OTHER ==
[2024-05-22 11:30] VITALS: BP 123/83; PULSE 87; RESP 17; TEMP 98.2; BMI 20.3
[2024-05-22] MEDS ORDERED: IBUPROFEN 600 MG TABLET (FP) PO ONE (13:01)
[2024-05-22] MEDS: IBUPROFEN 600 MG TABLET (FP) PO ONE (13:10)
[2024-05-22] MEDS ORDERED: METOCLOPRAMIDE HCL INJECTION 10 MG/2 ML VIAL ONE (15:45)
[2024-05-22] MEDS ORDERED: ACETAMINOPHEN INJECTION 100 ML ONE (15:45)
[2024-05-22 15:53] LABS: BASO % 0.4 % (0-2.0); EOS % 2.4 % (0-4.5); HEMATOCRIT 40.2 % (32.4-45.2); HEMOGLOBIN 13.8 GM/dL (10.7-15.3); LYMPH % 38.2 % (8-40); MCH 29.8 pg (25.7-33.7); MCHC 34.4 g/dl (32.0-36.0); MEAN CELL VOLUME 86.8 fl (80-96); MEAN PLT VOLUME 8.1 fl (7.5-11.1); MONO % 4.9 % (3.8-10.2); NEUT % 54.1 % (42.8-82.8); PLATELET COUNT 220 10^3/uL (134-434); RBC 4.64 M/mm3 (3.60-5.2); RDW 13.4 % (11.6-15.6); WHITE BLOOD COUNT 7.6 K/mm3 (4.0-10.0)
[2024-05-22] MEDS: ACETAMINOPHEN 1000 MG/100 ML BAG IVPB ONE (15:57)
[2024-05-22] MEDS: METOCLOPRAMIDE HCL INJECTION 10 MG/2 ML VIAL IVPUSH ONE (15:58)
[2024-05-22 16:10] LABS: POTASSIUM 3.9 mmol/L (3.5-5.1)
[2024-05-22 16:13] LABS: BLOOD UREA NITROGEN 12.6 mg/dL (7-18)
[2024-05-22 16:15] LABS: CREATININE 0.8 mg/dL (0.55-1.3)
[2024-05-22 16:17] LABS: BILIRUBIN,TOTAL 0.7 mg/dL (0.2-1); TOT PROT 7.5 g/dl (6.4-8.2)
== END 2024-05-22 16:57 | disposition home or self-care (01) ==
LOC: JER 11:26
PROC: 3E033NZ Introduction of Analgesics, Hypnotics, Sedatives into Peripheral Vein, Percutaneous Approach (ICD-10-PCS; principal; 2024-05-22)
PROC: 3E033GC Introduction of Other Therapeutic Substance into Peripheral Vein, Percutaneous Approach (ICD-10-PCS; 2024-05-22)
DX: M54.2 Cervicalgia (principal); H92.02 Otalgia, left ear; M54.6 Pain in thoracic spine; M25.511 Pain in right shoulder; M25.512 Pain in left shoulder; G43.809 Other migraine, not intractable, without status migrainosus; Z20.822 Contact with and (suspected) exposure to COVID-19
CPT/HCPCS: 0241U-QW; 36415; 70450-TC; 71046-TC-FY; 80053; 84484; 85025; 93005; 93010; 99285-25; J0131